=== PATIENT | female | born 1995 | race Caucasian/White ===

== ENCOUNTER 2020-12-28 17:48 | Emergency (ER) | payer OTHER ==
[2020-12-28] MEDS ORDERED: PSEUDOEPHEDRINE60 MG PO (20:53)
[2020-12-28] MEDS ORDERED: FLONASE 0.05% N16 GM (20:53)
[2020-12-28] MEDS ORDERED: AUGMENTIN 875-1 EACH PO (20:53)
== END 2020-12-28 20:57 | disposition home or self-care (01) ==
LOC: ER1 17:48
DX: J06.9 Acute upper respiratory infection, unspecified (principal); F17.210 Nicotine dependence, cigarettes, uncomplicated; Z88.2 Allergy status to sulfonamides; Z90.49 Acquired absence of other specified parts of digestive tract
CPT/HCPCS: 96374; 96375; 99283; J1200; J1885; J2765